=== PATIENT | female | born 1945 | race Caucasian/White ===

== ENCOUNTER → 2020-05-05 | Outpatient (CLI) | payer BC, MEDICARE ==
[2017-12-18 11:00] VITALS: BP 150/64
[~2020-05-05] MED LIST: ALBU1.25 NEB; AMLO-186 PO; ASCO500T3 PO; ASPI325T11 PO; CEFP100T PO; FLUT12AE IH; LOSA100T14 PO; LOSA25TA54 PO; METO25TA4 PO; PRED-220 PO; ZINC30TA2 PO
--- NOTE | 2020-05-05 09:56 | RAD ---
EXAM: Bilateral digital screening mammogram with tomosynthesis. HISTORY: 74-year-old female presents for screening mammography. TECHNIQUE: Full-field digital craniocaudal, exaggerated craniocaudal and mediolateral oblique 2D and 3D tomosynthesis images of both breasts are obtained for evaluation. Computer aided detection was agueda lied. COMPARISON: There is no prior study available for comparison. This exam serves as a new baseline mamm ogram. BREAST PARENCHYMAL DENSITY: Level C - Heterogeneously dense. FINDINGS: There is asymmetry within the posterior upper outer quadrant of the right breast, likely re presenting an island of fibroglandular tissue. There are benign calcifications within both breasts. T here is no architectural distortion. IMPRESSION: BI-RADS Category 0: Incomplete. Additional imaging needed. RECOMMENDATION: Further evaluation with a full field true lateral view and spot compression views of asymmetry within the posterior upper outer quadrant of the right breast likely due to an island of fi broglandular tissue is recommended, given the absence of prior studies to confirm stability. Sonograp hic imaging can also be performed if deemed indicated based on additional mammographic findings. If your mammogram demonstrates that you have dense breast tissue, which could hide abnormalities, and if you have other risk factors for breast cancer that have been identified, you might benefit from s upplemental screening tests that may be suggested by your ordering physician. Dense breast tissue, i n and of itself, is a relatively common condition. This information is not provided to cause undue c oncern, but rather to raise your awareness and to promote discussion with your physician regarding th e presence of other risk factors, in addition to dense breast tissue. A report of your mammography re sults will be sent to you and your physician. You should contact your physician if you have any ques tions or concerns regarding this report. Mammography is a sensitive method for finding small breast cancers, but it does not detect them all a nd is not a substitute for careful clinical examination. A negative mammogram does not negate a clin ically suspicious finding and should not result in delay in biopsying a clinically suspicious abnorma lity. PQRS compliance statement - Patient information was entered into a reminder system with a target due date for the next mammogram. "Our facility is accredited by the [employer] Mammography [employer]." Electronically signed by: Gwendolyn Hester MD (05/05/2020 9:53 AM) [id number]
== END ==
LOC: MAMMO 08:48
PROVIDERS: ATTEND Family Medicine
DX: Z12.31 Encounter for screening mammogram for malignant neoplasm of breast (principal)
CPT/HCPCS: 77063; 77067

== ENCOUNTER → 2020-05-12 | Outpatient (CLI) | payer MEDICARE ==
[2017-12-18 11:00] VITALS: BP 150/64
--- NOTE | 2020-05-12 14:51 | RAD ---
Examination: 1. Right digital diagnostic mammogram. 2. Limited right breast ultrasound. INDICATION: Screening recall for asymmetry in the posterior upper outer right breast. COMPARISON: 05/05/2020 bilateral screening mammogram. TECHNIQUE: Spot compression views of the right breast in the X CCL and MLO views were obtained. Targe faustino ultrasound of the upper-outer quadrant right breast was also performed. FINDINGS: The asymmetry changes configuration in a pattern compatible with benign fibroglandular tissue. Targeted ultrasound of the upper-outer quadrant right breast revealed dense fibroglandular tissue wit h no suspicious sonographic findings. Call Specialist images were acquired using the 12 through 9:00 p ositions 9 cm from the nipple. Sonographic survey of the right axilla revealed no adenopathy. IMPRESSION: Benign findings on targeted right breast ultrasound and mammography. No findings suspicious for malignancy. BI-RADS Category 2 Benign findings Recommend return to routine screening Patient entered into a reminder system with targeted due date for next mammogram. Electronically signed by: Donald Corona MD (05/12/2020 2:49 PM) [id number]
== END ==
LOC: MAMMO 13:52
PROVIDERS: ATTEND Family Medicine
DX: R92.8 Other abnormal and inconclusive findings on diagnostic imaging of breast (principal)
CPT/HCPCS: 76641; 77065